=== PATIENT | female | born 1985 | race Caucasian/White ===

== ENCOUNTER 2016-08-19 22:02 | Emergency (ER) | payer OTHER ==
[2016-08-19 22:20] VITALS: BP 129/91; BMI 37.9
[2016-08-20 00:11] LABS: BILIRUBIN,URINE NEGATIVE (NEGATIVE); BLOOD/HEMOGLOBIN,URINE NEGATIVE (NEGATIVE); GLUCOSE, URINE NEGATIVE (NEGATIVE); KETONES,URINE NEGATIVE (NEGATIVE); LEUKOCYTE ESTERASE ,URINE NEGATIVE (NEGATIVE); NITRITES,URINE NEGATIVE (NEGATIVE); PROTEIN,URINE NEGATIVE (NEGATIVE); UROBILINOGEN,URINE NORMAL (NORMAL)
[2016-08-20 00:17] LABS: APPEARANCE,URINE CLEAR (CLEAR); BACTERIA,URINE TRACE /HPF (NEGATIVE); COLOR,URINE YELLOW (YELLOW); RBC,URINE NONE SEEN /HPF (NEGATIVE); SQUAMOUS EPITHELIAL CELL,UR FEW /HPF (NEGATIVE)
[2016-08-20 00:18] LABS: MUCUS,URINE MODERATE /HPF (NEGATIVE)
[2016-08-20] MEDS ORDERED: MORPHINE SULFATE INJ 4 MG IM ONE (01:38)
[2016-08-20] MEDS ORDERED: ZOFRAN INJ 4 MG VIAL IM ONE (01:38)
--- NOTE | 2016-08-20 01:41 | DR.GENAD ---
HPI - PCP Primary Care Physician: RITA - HPI Comment HPI Comment: WORSE TONIGHT. NOTED AFTER RECENT PAP SMEAR. NO VAGINAL BLEEDING OR DISCHARGE. HISTORY POLYCYSTIC OVARIAN DISEASE. NO FEVER OR DYSURIA. - Complaint/Symptoms Chief Complaint Doctors Comments: LOWER BACK AND LOWER ABDOMINAL PAIN WITH NAUSEA TIMES 4 DAYS. Chief Complaint:: PT STATES" I HAD A PAP SMEAR ON THURSDAY AND I'VE BEEN BLEEDING AND HURTING SINCE THEN" - Nurses notes reviewed Nurses Notes Review: Yes - Source History Provided: Patient - Mode of Arrival Mode of Arrival: Ambulatory - Timing Onset of Chief Complaint: 08/15/16 Came on: Suddenly, Gradually - Duration Duration: Constant Duration: Days - Severity Severity: Moderate PMH - PMH Past Medical History: Yes Past Medical History: GERD, PUD Past Medical History Comment: POLYCYSTIC OVARIAN Past Surgical History: Yes Surgical History: Abdominal Surgery, Appendectomy, , Cholecystectomy, Ortho Surgery - Family History History of Family Medical Conditions: No - Social History Alcohol Use: None Do you use any recreational Drugs:: No Lives With: Family Lives Where: Home - infectious screening In the last 2 months have you had wt loss of >10#?: NO Have you had fever, night sweats or hemotysis?: No Have you traveled outside the country in the last 6 months?: No Isolation: Standard ROS - Review of Systems Constitutional: No Symptoms Reported. negative: Chills, Fever, Weakness, Fatigue Eyes: No Symptoms Reported. negative: Eye Pain, Discharge ENTM: No Symptoms Reported. negative: Ear Pain, Nose Discharge, Nose Congestion , Throat Pain Respiratoy: No Symptoms Reported. negative: Productive Cough, Non-Productive Cough, Short of Breath, Wheezing, Hemoptysis Cardiovascular: No Symptoms Reported. negative: Chest Pain, Edema, Palpitations Gastrointestinal/Abdominal: Abdominal Pain, Nausea Genitourinary: Pain. negative: Dysuria, Frequency, Hematuria Neurological: No Symptoms Reported Musculoskeletal: Muscle Pain Integumentary: No Symptoms Reported Hematologic/Lymphatic: No Symptoms Reported Endocrine: No Symptoms Reported All Other Systems: Reviewed and Negative PE - Vital Signs Vitals: Temperature 98.1 F Pulse Rate 100 Respiratory Rate 18 Blood Pressure 129/91 O2 Sat by Pulse Oximetry 100 - General Limitations: No Limitations General Appearance: Alert - Head Head Exam: Normal Inspection - Eyes Eye exam: Normal Appearance - ENT ENT Exam: Normal External Ear Exam External Ear Exam: Normal External Inspection TM/Canal Exam: Bilateral Normal Nose Exam: Normal Nose Exam Mouth Exam: Normal Inspection Throat Exam: Normal Inspection - Neck Neck Exam: Trachea Midline. negative: Tenderness, Meningismus, Lymphadenopathy - Chest Chest Inspection: Symmetric Chest Wall Rise - Respiratory Respiratory Exam: Normal Lung Sounds Bilat Respiratory Exam: Bilateral Clear to Auscultation - Cardiovascular Cardiovascular Exam: Regular Rate, Normal Rhythm, Normal Heart Sounds - Abdominal Exam Abdominal Exam: Normal Bowel Sounds, Soft, Tenderness Abdominal Tenderness: RLQ, LLQ, Suprapubic - Extremities Extremities Exam: Normal Inspection - Back Back Exam: Normal Inspection - Neurologic Neurological Exam: Alert, Oriented X3 - Psychiatric Psychiatric Exam: Normal Affect, Normal Mood - Skin Skin Exam: Normal Color MDM - Differential Diagnosis Differential Diagnosis: ABDOMINAL PAIN, LOWER BACK PAIN Course - Treatment Treatment: SEE ORDERS - Education/Counseling Education/Counseling: Patient, Education Educated On: Diagnosis, Needs for Follow Up ROR - Labs Reviewed Laboratory Results Reviewed?: Yes Result Diagrams: 08/20/16 01:50 08/20/16 01:50 Laboratory: WBC 12.8 X10^3/uL (3.6-10.0) H 08/20/16 01:50 RBC 4.48 X10^6/uL (3.5-5.4) 08/20/16 01:50 Hgb 13.9 g/dL (12.0-16.0) 08/20/16 01:50 Hct 41.0 % (36.0-47.0) 08/20/16 01:50 MCV 91.5 fL (80.0-100.0) 08/20/16 01:50 MCH 31.0 pg (27.0-34.0) 08/20/16 01:50 MCHC 33.9 g/dL (33.0-35.0) 08/20/16 01:50 RDW 13.2 % (11.6-16.5) 08/20/16 01:50 Plt Count 258 X10^3/uL (150.0-450.0) 08/20/16 01:50 MPV 8.8 fL (7.4-11.0) 08/20/16 01:50 Neut % 65.3 % (42.0-75.0) 08/20/16 01:50 Lymph % 28.5 % (21.0-51.0) 08/20/16 01:50 [place] % 3.8 % (0.0-13.0) 08/20/16 01:50 Eos % 1.3 % (0.9-2.9) 08/20/16 01:50 Baso % 1.1 % (0.2-1.0) H 08/20/16 01:50 Neut # 8.4 x10^3/uL (2.2-4.8) H 08/20/16 01:50 Lymph # 3.7 X10^3/uL (1.3-2.9) H 08/20/16 01:50 [place] # 0.5 x10^3/uL (0.3-0.8) 08/20/16 01:50 Eos # 0.2 x10^3/uL (0.0-0.2) 08/20/16 01:50 Baso # 0.1 X10^3/uL (0.0-0.1) 08/20/16 01:50 Absolute Nucleated RBC 0.0 /100WBC 08/20/16 01:50 Sodium 140 mmol/L (136-145) 08/20/16 01:50 Corrected Sodium TNP 08/20/16 01:50 Potassium 3.3 mmol/L (3.5-5.1) L 08/20/16 01:50 Chloride 103 mmol/L (98-107) 08/20/16 01:50 Carbon Dioxide 31.2 mmol/L (21-32) 08/20/16 01:50 BUN 9 mg/dL (7-18) 08/20/16 01:50 Creatinine 0.82 mg/dL (0.55-1.02) 08/20/16 01:50 Est GFR (MDRD) Af Amer > 60 (>60) 08/20/16 01:50 Est GFR (MDRD) Non-Af > 60 (>60) 08/20/16 01:50 Glucose 92 mg/dL (65-99) 08/20/16 01:50 Calcium 9.0 mg/dL (8.5-10.1) 08/20/16 01:50 Corrected Calcium 9.6 mg/dL (8.5-10.1) 08/20/16 01:50 Total Bilirubin 0.30 mg/dL (0.2-1.0) 08/20/16 01:50 AST 11 Units/L (15-37) L 08/20/16 01:50 ALT 23 Units/L (12-78) 08/20/16 01:50 Alkaline Phosphatase 104 Units/L (46-116) 08/20/16 01:50 Total Protein 7.0 g/dL (6.4-8.2) 08/20/16 01:50 Albumin 3.3 g/dL (3.4-5.0) L 08/20/16 01:50 Globulin 3.7 g/dL (2.5-4.5) 08/20/16 01:50 Albumin/Globulin Ratio 0.9 Ratio (1.1-2.1) L 08/20/16 01:50 Amylase 46 Units/L (25-115) 08/20/16 01:50 Lipase 67 Units/L (73-393) L 08/20/16 01:50 Specimen Type Clean catch urine 08/19/16 23:57 Urine Color Yellow (YELLOW) 08/19/16 23:57 Urine Appearance Clear (CLEAR) 08/19/16 23:57 Urine pH 5.0 (5.0 - 8.0) 08/19/16 23:57 Ur Specific [place] 1.020 (1.000-1.030) 08/19/16 23:57 Urine Protein Negative (NEGATIVE) 08/19/16 23:57 Urine Glucose (UA) Negative (NEGATIVE) 08/19/16 23:57 Urine Ketones Negative (NEGATIVE) 08/19/16 23:57 Urine Occult Blood Negative (NEGATIVE) 08/19/16 23:57 Urine Nitrite Negative (NEGATIVE) 08/19/16 23:57 Urine Bilirubin Negative (NEGATIVE) 08/19/16 23:57 Urine Urobilinogen Normal (NORMAL) 08/19/16 23:57 Ur Leukocyte Esterase Negative (NEGATIVE) 08/19/16 23:57 Urine RBC None seen /HPF (NEGATIVE) 08/19/16 23:57 Urine WBC 0-2 /HPF (NEGATIVE) 08/19/16 23:57 Ur Squamous Epith Cells Few /HPF (NEGATIVE) 08/19/16 23:57 Urine Bacteria Trace /HPF (NEGATIVE) 08/19/16 23:57 Urine Mucus Moderate /HPF (NEGATIVE) 08/19/16 23:57 Ur Culture Indicated? No/not indicated 08/19/16 23:57 - XRAY XRAY Interpreted by: Radiologist XRAY Findings: REPORT DISCUSS WITH PATIENT. - Diagnosis Discharge Problem: Back pain Qualifiers: Back pain location: low back pain Chronicity: acute Back pain laterality: bilateral Sciatica presence: without sciatica Qualified Code(s): M54.5 - Low back pain Abdominal pain Qualifiers: Abdominal location: lower abdomen, unspecified Qualified Code(s): R10.30 - Lower abdominal pain, unspecified - Discharge Plan Disposition: 01 HOME, SELF-CARE Condition: Stable Prescriptions: Hydrocodone-Acet 5 mg/325 mg [[place] 5/325 mg Tab] 1 tab PO Q6H PRN #15 tab PRN Reason: Pain Ondansetron HCl [Zofran Tab 4 mg] 4 mg PO Q8H PRN #12 tab PRN Reason: Nausea/Vomiting - Follow ups/Referrals Follow ups/Referrals: NFD,None [Primary Care Provider] - 1 day Srinivasa Soto [STAFF PHYSICIAN] - 1 day - Instructions Instructions: Back Pain, Adult, [id number], Abdominal Pain, Adult, Easy-to- Read Additional Instructions: RETURN TO ED IF WORSE.
[2016-08-20] MEDS ORDERED: ZOFRAN INJ 4 MG VIAL ONE (01:47)
[2016-08-20] MEDS ORDERED: MORPHINE SULFATE INJ 4 MG ONE (01:48)
[2016-08-20 02:07] LABS: BASOPHILS # (AUTO) 0.1 X10^3/uL (0.0-0.1); BASOPHILS % (AUTO) 1.1 % (0.2-1.0); EOSINOPHILS # (AUTO) 0.2 x10^3/uL (0.0-0.2); EOSINOPHILS % (AUTO) 1.3 % (0.9-2.9); HEMOGLOBIN 13.9 g/dL (12.0-16.0); LYMPHOCYTES # (AUTO) 3.7 X10^3/uL (1.3-2.9); LYMPHOCYTES % (AUTO) 28.5 % (21.0-51.0); MEAN CORPUSCULAR HGB CONC 33.9 g/dL (33.0-35.0); MEAN CORPUSCULAR VOLUME 91.5 fL (80.0-100.0); MEAN PLATELET VOLUME 8.8 fL (7.4-11.0); MONOCYTES # (AUTO) 0.5 x10^3/uL (0.3-0.8); MONOCYTES % (AUTO) 3.8 % (0.0-13.0); NEUTROPHILS # (AUTO) 8.4 x10^3/uL (2.2-4.8); NEUTROPHILS % (AUTO) 65.3 % (42.0-75.0); PLATELET COUNT 258 X10^3/uL (150.0-450.0); RED BLOOD COUNT 4.48 X10^6/uL (3.5-5.4); RED CELL DISTRIBUTION WIDTH 13.2 % (11.6-16.5); WHITE BLOOD COUNT 12.8 X10^3/uL (3.6-10.0)
[2016-08-20 02:13] LABS: ALANINE AMINOTRANSFERASE 23 Units/L (12-78); ALBUMIN 3.3 g/dL (3.4-5.0); ALKALINE PHOSPHATASE 104 Units/L (46-116); AMYLASE 46 Units/L (25-115); ASPARTATE AMINO TRANSFERASE 11 Units/L (15-37); BLOOD UREA NITROGEN 9 mg/dL (7-18); CARBON DIOXIDE 31.2 mmol/L (21-32); CHLORIDE 103 mmol/L (98-107); COR CA(FOR HYPOALB) 9.6 mg/dL (8.5-10.1); CREATININE 0.82 mg/dL (0.55-1.02); GLUCOSE 92 mg/dL (65-99); LIPASE 67 Units/L (73-393); SODIUM 140 mmol/L (136-145); eGFR BLACK RACES > 60 (>60); eGFR NON BLACK RACES > 60 (>60)
--- NOTE | 2016-08-20 02:19 | CT ---
CT abdomen and pelvis without contrast Indication: Back pain, lower abdominal pain Comparison: None Technique: CT images of the abdomen and pelvis were obtained without contrast. Automatic exposure co ntrol was utilized. Findings: No aggressive osseous lesions. The lung bases are clear. The gallbladder is surgically absent. Within the limitations of a noncontrast study, the liver, sple en, stomach, duodenum, pancreas, adrenals, and kidneys appear normal. No ureteral stone identified. No focal bowel thickening or dilatation of the lower GI tract identified. The appendix is surgically absent. The uterus and ovaries are grossly normal. The urinary bladder and rectum are unremarkable. No free fluid or adenopathy identified. Impression: No acute process identified to explain patient's symptoms. Absent appendix. Reported By:
[2016-08-20] MEDS ORDERED: POTASSIUM CHLORIDE LIQ 20 MEQ UDC PO ONE (02:35)
[2016-08-20] MEDS ORDERED: POTASSIUM CHLORIDE LIQ 20 MEQ UDC ONE (02:44)
[2016-08-20] MEDS ORDERED: NORCO 5/325 MG TAB PO ONE (02:50)
[2016-08-20] MEDS ORDERED: NORCO 5/325 MG TAB ONE (02:51)
== END 2016-08-20 02:53 | disposition home or self-care (01) ==
LOC: ER 22:24
DX: M54.5 Low back pain (principal); R10.31 Right lower quadrant pain
CPT/HCPCS: 36415; 74176; 80053; 81001; 82150; 83690; 85025; 96372; 99283; J2270; J2405

== ENCOUNTER 2016-12-15 01:16 | Emergency (ER) | payer OTHER ==
[2016-12-15 01:25] VITALS: BP 118/71; BMI 34.3
[2016-12-15 01:57] LABS: BILIRUBIN,URINE NEGATIVE (NEGATIVE); BLOOD/HEMOGLOBIN,URINE NEGATIVE (NEGATIVE); GLUCOSE, URINE NEGATIVE (NEGATIVE); KETONES,URINE NEGATIVE (NEGATIVE); LEUKOCYTE ESTERASE ,URINE NEGATIVE (NEGATIVE); NITRITES,URINE NEGATIVE (NEGATIVE); PROTEIN,URINE NEGATIVE (NEGATIVE); UROBILINOGEN,URINE NORMAL (NORMAL)
--- NOTE | 2016-12-15 02:05 | DR.GENAD ---
HPI - PCP Primary Care Physician: IVIS - HPI Comment HPI Comment: HISTORY BELOW. - Complaint/Symptoms Chief Complaint Doctors Comments: SORE THROT, COUGH, CONGESTION, CHEST PAIN AND SOB TIMES ONE DAY. NECK FLAND ARE HURTING ALSO. WORSE TODAY. Chief Complaint:: PT STATES" MY CHEST HURTS MY THROAT HURTS I BEEN COUGHING ALOT FEELS LIKE I CAN'T GET A GOOD BREATH" - Nurses notes reviewed Nurses Notes Review: Yes - Source History Provided: Patient - Mode of Arrival Mode of Arrival: Ambulatory - Timing Onset of Chief Complaint: 12/14/16 - Duration Duration: Constant Duration: Days - Severity Severity: Moderate PMH - PMH Past Medical History: Yes Past Medical History: GERD, PUD Past Medical History Comment: POLYCYSTIC OVARIAN SYNDROME Past Surgical History: Yes Surgical History: Abdominal Surgery, Appendectomy, , Cholecystectomy, Ortho Surgery - Family History History of Family Medical Conditions: No - Social History Type of Tobacco Use: Cigarettes Does any household member use tobacco: No Alcohol Use: None Do you use any recreational Drugs:: No Lives With: Family Lives Where: Home - infectious screening In the last 2 months have you had wt loss of >10#?: NO Have you had fever, night sweats or hemotysis?: No Have you traveled outside the country in the last 6 months?: No Isolation: Standard ROS - Review of Systems Constitutional: No Symptoms Reported Eyes: No Symptoms Reported ENTM: No Symptoms Reported Respiratoy: No Symptoms Reported Cardiovascular: No Symptoms Reported Gastrointestinal/Abdominal: No Symptoms Reported Genitourinary: No Symptoms Reported Neurological: No Symptoms Reported Musculoskeletal: No Symptoms Reported Integumentary: No Symptoms Reported Hematologic/Lymphatic: No Symptoms Reported Endocrine: No Symptoms Reported All Other Systems: Reviewed and Negative PE - Vital Signs Vitals: Temperature 98.7 F Pulse Rate 90 Respiratory Rate 18 Blood Pressure 118/71 O2 Sat by Pulse Oximetry 100 - General Limitations: No Limitations General Appearance: Alert - Head Head Exam: Normal Inspection - Eyes Eye exam: Normal Appearance - ENT ENT Exam: Normal External Ear Exam External Ear Exam: Normal External Inspection TM/Canal Exam: Bilateral Normal Nose Exam: Normal Nose Exam Mouth Exam: Normal Inspection Throat Exam: Normal Inspection - Neck Neck Exam: Normal Inspection - Chest Chest Inspection: Symmetric Chest Wall Rise - Respiratory Respiratory Exam: Normal Lung Sounds Bilat Respiratory Exam: Bilateral Clear to Auscultation - Cardiovascular Cardiovascular Exam: Regular Rate, Normal Rhythm, Normal Heart Sounds - Abdominal Exam Abdominal Exam: Normal Bowel Sounds, Soft. negative: Tenderness - Extremities Extremities Exam: Normal Inspection - Back Back Exam: Normal Inspection - Neurologic Neurological Exam: Alert, Oriented X3 - Psychiatric Psychiatric Exam: Normal Affect, Normal Mood - Skin Skin Exam: Normal Color MDM - Differential Diagnosis Differential Diagnosis: CHEST PAIN, SORE THROAT, NECK GLAND PAIN AND SWELLING. Course - Treatment Treatment: SEE ORDERS - Education/Counseling Education/Counseling: Patient, Education Educated On: Treatment, Diagnosis, Needs for Follow Up ROR - Labs Reviewed Laboratory Results Reviewed?: Yes Result Diagrams: 12/15/16 02:00 Laboratory: WBC 7.9 X10^3/uL (3.6-10.0) 12/15/16 02:00 RBC 3.92 X10^6/uL (3.5-5.4) 12/15/16 02:00 Hgb 12.1 g/dL (12.0-16.0) 12/15/16 02:00 Hct 35.7 % (36.0-47.0) L 12/15/16 02:00 MCV 91.2 fL (80.0-100.0) 12/15/16 02:00 MCH 30.8 pg (27.0-34.0) 12/15/16 02:00 MCHC 33.8 g/dL (33.0-35.0) 12/15/16 02:00 RDW 13.8 % (11.6-16.5) 12/15/16 02:00 Plt Count 155 X10^3/uL (150.0-450.0) 12/15/16 02:00 MPV 9.6 fL (7.4-11.0) 12/15/16 02:00 Neut % 72.4 % (42.0-75.0) 12/15/16 02:00 Lymph % 19.2 % (21.0-51.0) L 12/15/16 02:00 [place] % 6.1 % (0.0-13.0) 12/15/16 02:00 Eos % 2.1 % (0.9-2.9) 12/15/16 02:00 Baso % 0.2 % (0.2-1.0) 12/15/16 02:00 Neut # 5.7 x10^3/uL (2.2-4.8) H 12/15/16 02:00 Lymph # 1.5 X10^3/uL (1.3-2.9) 12/15/16 02:00 [place] # 0.5 x10^3/uL (0.3-0.8) 12/15/16 02:00 Eos # 0.2 x10^3/uL (0.0-0.2) 12/15/16 02:00 Baso # 0.0 X10^3/uL (0.0-0.1) 12/15/16 02:00 Absolute Nucleated RBC 0.1 /100WBC 12/15/16 02:00 HCG, Qual Negative <10 mIU/mL 12/15/16 02:00 Specimen Type Clean catch urine 12/15/16 01:44 Urine Color Yellow (YELLOW) 12/15/16 01:44 Urine Appearance Clear (CLEAR) 12/15/16 01:44 Urine pH 7.0 (5.0 - 8.0) 12/15/16 01:44 Ur Specific [place] 1.010 (1.000-1.030) 12/15/16 01:44 Urine Protein Negative (NEGATIVE) 12/15/16 01:44 Urine Glucose (UA) Negative (NEGATIVE) 12/15/16 01:44 Urine Ketones Negative (NEGATIVE) 12/15/16 01:44 Urine Occult Blood Negative (NEGATIVE) 12/15/16 01:44 Urine Nitrite Negative (NEGATIVE) 12/15/16 01:44 Urine Bilirubin Negative (NEGATIVE) 12/15/16 01:44 Urine Urobilinogen Normal (NORMAL) 12/15/16 01:44 Ur Leukocyte Esterase Negative (NEGATIVE) 12/15/16 01:44 Urine RBC None seen /HPF (NEGATIVE) 12/15/16 01:44 Urine WBC None seen /HPF (NEGATIVE) 12/15/16 01:44 Ur Squamous Epith Cells Rare /HPF (NEGATIVE) 12/15/16 01:44 Urine Bacteria Negative /HPF (NEGATIVE) 12/15/16 01:44 Ur Culture Indicated? No/not indicated 12/15/16 01:44 Monoscreen Negative (NEGATIVE) 12/15/16 02:00 Streptococcus Screen Negative (NEGATIVE) 12/15/16 01:32 - XRAY XRAY Interpreted by: Radiologist XRAY Findings: REPORT DISCUSS WITH PATIENT. - Diagnosis Discharge Problem: Tonsillitis, Bronchitis, Cervical adenitis - Discharge Plan Disposition: 01 HOME, SELF-CARE Condition: Stable Prescriptions: Benzonatate [TESSALON PERLES *] 200 mg PO TID PRN #20 cap PRN Reason: Cough Cefdinir [Omnicef Cap 300 mg] 300 mg PO BID #20 cap Ketorolac Tromethamine [Toradol Tab] 10 mg PO Q8H PRN #12 tab PRN Reason: Pain - Follow ups/Referrals Follow ups/Referrals: NFD,None [Primary Care Provider] - 2 days - Instructions Instructions: Tonsillitis, [id number], Acute Bronchitis, [id number] Additional Instructions: RETURN TO ED IF WORSE.
[2016-12-15 02:07] LABS: APPEARANCE,URINE CLEAR (CLEAR); BACTERIA,URINE NEGATIVE /HPF (NEGATIVE); COLOR,URINE YELLOW (YELLOW); RBC,URINE NONE SEEN /HPF (NEGATIVE); SQUAMOUS EPITHELIAL CELL,UR RARE /HPF (NEGATIVE)
[2016-12-15 02:18] LABS: BASOPHILS % (AUTO) 0.2 % (0.2-1.0); EOSINOPHILS # (AUTO) 0.2 x10^3/uL (0.0-0.2); EOSINOPHILS % (AUTO) 2.1 % (0.9-2.9); HEMATOCRIT 35.7 % (36.0-47.0); HEMOGLOBIN 12.1 g/dL (12.0-16.0); LYMPHOCYTES # (AUTO) 1.5 X10^3/uL (1.3-2.9); LYMPHOCYTES % (AUTO) 19.2 % (21.0-51.0); MEAN CORPUSCULAR HEMOGLOBIN 30.8 pg (27.0-34.0); MEAN CORPUSCULAR HGB CONC 33.8 g/dL (33.0-35.0); MEAN CORPUSCULAR VOLUME 91.2 fL (80.0-100.0); MEAN PLATELET VOLUME 9.6 fL (7.4-11.0); MONOCYTES # (AUTO) 0.5 x10^3/uL (0.3-0.8); MONOCYTES % (AUTO) 6.1 % (0.0-13.0); NEUTROPHILS # (AUTO) 5.7 x10^3/uL (2.2-4.8); NEUTROPHILS % (AUTO) 72.4 % (42.0-75.0); PLATELET COUNT 155 X10^3/uL (150.0-450.0); RED BLOOD COUNT 3.92 X10^6/uL (3.5-5.4); RED CELL DISTRIBUTION WIDTH 13.8 % (11.6-16.5); WHITE BLOOD COUNT 7.9 X10^3/uL (3.6-10.0)
[2016-12-15 02:23] LABS: SERUM PREGNANCY TEST, QUAL NEGATIVE <10 mIU/mL
[2016-12-15 02:29] LABS: MONOTEST NEGATIVE (NEGATIVE)
[2016-12-15] MEDS ORDERED: ROCEPHIN VIAL 1 GM IM ONE (02:48)
[2016-12-15] MEDS ORDERED: TORADOL 60 MG VIAL IM ONE (02:48)
[2016-12-15] MEDS ORDERED: XYLOCAINE 1 % (PLAIN) ONE (02:57)
[2016-12-15] MEDS ORDERED: TORADOL 60 MG VIAL ONE (02:58)
[2016-12-15] MEDS ORDERED: ROCEPHIN VIAL 1 GM ONE (02:58)
== END 2016-12-15 03:52 | disposition home or self-care (01) ==
LOC: ER 01:16
DX: J40 Bronchitis, not specified as acute or chronic (principal); I88.9 Nonspecific lymphadenitis, unspecified; J03.90 Acute tonsillitis, unspecified; Z72.0 Tobacco use
CPT/HCPCS: 36415; 71010; 81001; 84703; 85025; 86308; 87070; 87880; 96372; 99283; J0696; J1885; J2001

== ENCOUNTER 2017-01-06 09:13 | Emergency (ER) | payer OTHER ==
--- NOTE | 2017-01-06 09:25 | DR.GENAD ---
HPI - HPI Comment HPI Comment: PATIENTS WAS NOTED NOT TO RESPONSE TO TWICE TODAY. SHE IS HAVING SEVERE HEADACHE WORSE THAN HER MIGRAINE HEADACHE. NO N/V D. NO FEVER. NOT TAKING XANAX PAST 3 DAYS. - Complaint/Symptoms Chief Complaint Doctors Comments: HEADACHE, SYNCOPAL EPISODE. - Nurses notes reviewed Nurses Notes Review: Yes - Source History Provided: Patient - Mode of Arrival Mode of Arrival: Ambulatory - Timing Came on: Suddenly - Duration Duration: Constant Duration: Days - Severity Severity: Moderate PMH - PMH Past Medical History: GERD, PUD Past Surgical History: Yes Surgical History: Abdominal Surgery, Appendectomy, , Cholecystectomy, Ortho Surgery - Social History Do you use any recreational Drugs:: No ROS - Review of Systems Constitutional: No Symptoms Reported Eyes: No Symptoms Reported ENTM: No Symptoms Reported Respiratoy: No Symptoms Reported Cardiovascular: No Symptoms Reported Gastrointestinal/Abdominal: No Symptoms Reported Genitourinary: No Symptoms Reported Neurological: Headache Musculoskeletal: No Symptoms Reported Integumentary: No Symptoms Reported Hematologic/Lymphatic: No Symptoms Reported Endocrine: No Symptoms Reported All Other Systems: Reviewed and Negative PE - Vital Signs Vitals: Temperature 98 F Pulse Rate 90 Respiratory Rate 20 Blood Pressure 120/77 O2 Sat by Pulse Oximetry 100 - General Limitations: No Limitations General Appearance: Alert - Head Head Exam: Normal Inspection - Eyes Eye exam: Normal Appearance - ENT ENT Exam: Normal External Ear Exam External Ear Exam: Normal External Inspection TM/Canal Exam: Bilateral Normal Nose Exam: Normal Nose Exam Mouth Exam: Normal Inspection Throat Exam: Normal Inspection - Neck Neck Exam: Normal Inspection - Chest Chest Inspection: Symmetric Chest Wall Rise - Respiratory Respiratory Exam: Normal Lung Sounds Bilat Respiratory Exam: Bilateral Clear to Auscultation - Cardiovascular Cardiovascular Exam: Regular Rate, Normal Rhythm, Normal Heart Sounds - Abdominal Exam Abdominal Exam: Normal Bowel Sounds, Soft. negative: Tenderness - Extremities Extremities Exam: Normal Inspection - Back Back Exam: Normal Inspection - Neurologic Neurological Exam: Alert, Oriented X3, CN II-XII Intact, Normal Gait, Reflexes Normal. negative: Motor Sensory Deficit - Psychiatric Psychiatric Exam: Normal Affect, Normal Mood - Skin Skin Exam: Normal Color [facility] - Additional Information Additional Information Obtained From: Family - Differential Diagnosis Differential Diagnosis: HEADACHE, SYNCOPAL EPISODE, CHEST PAIN Course - Treatment Treatment: SEE ORDERS. - Education/Counseling Education/Counseling: Patient, Education Educated On: Treatment, Diagnosis, Needs for Follow Up ROR - Labs Reviewed Laboratory Results Reviewed?: Yes Result Diagrams: 01/06/17 09:50 01/06/17 09:50 Laboratory: WBC 10.5 X10^3/uL (3.6-10.0) H 01/06/17 09:50 RBC 4.14 X10^6/uL (3.5-5.4) 01/06/17 09:50 Hgb 12.9 g/dL (12.0-16.0) 01/06/17 09:50 Hct 38.3 % (36.0-47.0) 01/06/17 09:50 MCV 92.6 fL (80.0-100.0) 01/06/17 09:50 MCH 31.1 pg (27.0-34.0) 01/06/17 09:50 MCHC 33.5 g/dL (33.0-35.0) 01/06/17 09:50 RDW 14.5 % (11.6-16.5) 01/06/17 09:50 Plt Count 231 X10^3/uL (150.0-450.0) 01/06/17 09:50 MPV 8.8 fL (7.4-11.0) 01/06/17 09:50 Neut % 67.7 % (42.0-75.0) 01/06/17 09:50 Lymph % 23.2 % (21.0-51.0) 01/06/17 09:50 [place] % 5.2 % (0.0-13.0) 01/06/17 09:50 Eos % 3.4 % (0.9-2.9) H 01/06/17 09:50 Baso % 0.5 % (0.2-1.0) 01/06/17 09:50 Neut # 7.1 x10^3/uL (2.2-4.8) H 01/06/17 09:50 Lymph # 2.4 X10^3/uL (1.3-2.9) 01/06/17 09:50 [place] # 0.5 x10^3/uL (0.3-0.8) 01/06/17 09:50 Eos # 0.4 x10^3/uL (0.0-0.2) H 01/06/17 09:50 Baso # 0.1 X10^3/uL (0.0-0.1) 01/06/17 09:50 Absolute Nucleated RBC 0.0 /100WBC 01/06/17 09:50 Sodium 141 mmol/L (136-145) 01/06/17 09:50 Corrected Sodium TNP 01/06/17 09:50 Potassium 4.0 mmol/L (3.5-5.1) 01/06/17 09:50 Chloride 106 mmol/L (98-107) 01/06/17 09:50 Carbon Dioxide 28.8 mmol/L (21-32) 01/06/17 09:50 BUN 11 mg/dL (7-18) 01/06/17 09:50 Creatinine 0.80 mg/dL (0.55-1.02) 01/06/17 09:50 Est GFR (MDRD) Af Amer > 60 (>60) 01/06/17 09:50 Est GFR (MDRD) Non-Af > 60 (>60) 01/06/17 09:50 Glucose 100 mg/dL (65-99) H 01/06/17 09:50 Calcium 8.8 mg/dL (8.5-10.1) 01/06/17 09:50 Corrected Calcium 9.5 mg/dL (8.5-10.1) 01/06/17 09:50 Total Bilirubin 0.20 mg/dL (0.2-1.0) 01/06/17 09:50 AST 18 Units/L (15-37) 01/06/17 09:50 ALT 31 Units/L (12-78) 01/06/17 09:50 Alkaline Phosphatase 105 Units/L (46-116) 01/06/17 09:50 Creatine Kinase 94 Units/L (26-192) 01/06/17 09:50 CK-MB (CK-2) < 1.0 ng/mL (0-4.0) 01/06/17 09:50 CK/CKMB % Calc 1.1 % (<4) 01/06/17 09:50 Troponin I < 0.02 ng/mL (0-1.5) 01/06/17 09:50 Total Protein 6.8 g/dL (6.4-8.2) 01/06/17 09:50 Albumin 3.1 g/dL (3.4-5.0) L 01/06/17 09:50 Globulin 3.7 g/dL (2.5-4.5) 01/06/17 09:50 Albumin/Globulin Ratio 0.8 Ratio (1.1-2.1) L 01/06/17 09:50 Specimen Type Clean catch urine 01/06/17:28 Urine Color Yellow (YELLOW) 01/06/17: Urine Appearance Slightly hazy (CLEAR) 01/06/17 09:28 Urine pH 6.0 (5.0 - 8.0) 01/06/17 09:28 Ur Specific [place] 1.025 (1.000-1.030) 01/06/17: Urine Protein 1+ (NEGATIVE) 01/06/17 09:28 Urine Glucose (UA) Negative (NEGATIVE) 01/06/17 09: Urine Ketones Negative (NEGATIVE) 01/06/17: Urine Occult Blood 4+ (NEGATIVE) 01/06/17: Urine Nitrite Negative (NEGATIVE) 01/06/17 09:28 Urine Bilirubin Negative (NEGATIVE) 01/06/17 09:28 Urine Urobilinogen Normal (NORMAL) 01/06/17:28 Ur Leukocyte Esterase Negative (NEGATIVE) 01/06/17:28 Urine RBC 3-5 /HPF (NEGATIVE) 01/06/17 09:28 Urine WBC 0-2 /HPF (NEGATIVE) 01/06/17 09:28 Ur Squamous Epith Cells Many /HPF (NEGATIVE) 01/06/17 09:28 Urine Bacteria Trace /HPF (NEGATIVE) 01/06/17 09:28 Urine Mucus Few /HPF (NEGATIVE) 01/06/17 09:28 Ur Culture Indicated? No/not indicated 01/06/17 09:28 Urine Opiates Screen Positive (NEG=<300) A 01/06/17:28 Urine Methadone Screen Negative (NEG=<300) 01/06/17: Ur Barbiturates Screen Negative (NEG=<200) 01/06/17:28 Ur Phencyclidine Scrn Negative (NEG=<25) 01/06/17 09:28 Ur Amphetamines Screen Positive (NEG=<1000) A 01/06/17: U Benzodiazepines Scrn Positive (NEG=<200) A 01/06/17 09:28 Urine Cocaine Screen Negative (NEG=<300) 01/06/17 09:28 U Marijuana (THC) Screen Positive (NEG=<50) A 01/06/17 09:28 - XRAY XRAY Findings: REPORT DISCUSS WITH PATIENT. - Diagnosis Discharge Problem: Syncope Qualifiers: Syncope type: unspecified Qualified Code(s): R55 - Syncope and collapse Headache Qualifiers: Headache type: unspecified Headache chronicity pattern: unspecified pattern Intractability: intractable Qualified Code(s): R51 - Headache - Discharge Plan Disposition: 01 HOME, SELF-CARE Condition: Stable - Follow ups/Referrals Follow ups/Referrals: Marti Bernabe [REGISTERED NURSE] - 1 day FRANDY BRYAN [STAFF PHYSICIAN] - 3 days FRAN BARRY [REFERRING] - 3 days - Instructions Instructions: Migraine Headache, [id number], Syncope, [id number] Additional Instructions: RETURN TO ED IF WORSE.
[2017-01-06 09:26] VITALS: BP 120/77; BMI 29.7
[2017-01-06] MEDS ORDERED: MORPHINE SULFATE INJ 4 MG IM ONE (09:40)
[2017-01-06] MEDS ORDERED: ZOFRAN INJ 4 MG VIAL IVP ONE (09:40)
[2017-01-06] MEDS ORDERED: ZOFRAN INJ 4 MG VIAL IM ONE (09:40)
[2017-01-06] MEDS ORDERED: ZOFRAN INJ 4 MG VIAL ONE (09:42)
[2017-01-06] MEDS ORDERED: MORPHINE SULFATE INJ 4 MG ONE (09:43)
[2017-01-06 10:00] LABS: BILIRUBIN,URINE NEGATIVE (NEGATIVE); BLOOD/HEMOGLOBIN,URINE 4+ (NEGATIVE); GLUCOSE, URINE NEGATIVE (NEGATIVE); KETONES,URINE NEGATIVE (NEGATIVE); LEUKOCYTE ESTERASE ,URINE NEGATIVE (NEGATIVE); NITRITES,URINE NEGATIVE (NEGATIVE); PROTEIN,URINE 1+ (NEGATIVE); UROBILINOGEN,URINE NORMAL (NORMAL)
[2017-01-06 10:02] LABS: BASOPHILS # (AUTO) 0.1 X10^3/uL (0.0-0.1); BASOPHILS % (AUTO) 0.5 % (0.2-1.0); EOSINOPHILS # (AUTO) 0.4 x10^3/uL (0.0-0.2); EOSINOPHILS % (AUTO) 3.4 % (0.9-2.9); HEMATOCRIT 38.3 % (36.0-47.0); HEMOGLOBIN 12.9 g/dL (12.0-16.0); LYMPHOCYTES # (AUTO) 2.4 X10^3/uL (1.3-2.9); LYMPHOCYTES % (AUTO) 23.2 % (21.0-51.0); MEAN CORPUSCULAR HEMOGLOBIN 31.1 pg (27.0-34.0); MEAN CORPUSCULAR HGB CONC 33.5 g/dL (33.0-35.0); MEAN CORPUSCULAR VOLUME 92.6 fL (80.0-100.0); MEAN PLATELET VOLUME 8.8 fL (7.4-11.0); MONOCYTES # (AUTO) 0.5 x10^3/uL (0.3-0.8); MONOCYTES % (AUTO) 5.2 % (0.0-13.0); NEUTROPHILS # (AUTO) 7.1 x10^3/uL (2.2-4.8); NEUTROPHILS % (AUTO) 67.7 % (42.0-75.0); PLATELET COUNT 231 X10^3/uL (150.0-450.0); RED BLOOD COUNT 4.14 X10^6/uL (3.5-5.4); RED CELL DISTRIBUTION WIDTH 14.5 % (11.6-16.5); WHITE BLOOD COUNT 10.5 X10^3/uL (3.6-10.0)
[2017-01-06 10:12] LABS: APPEARANCE,URINE SLIGHTLY HAZY (CLEAR); COLOR,URINE YELLOW (YELLOW)
[2017-01-06 10:13] LABS: BACTERIA,URINE TRACE /HPF (NEGATIVE); MUCUS,URINE FEW /HPF (NEGATIVE); SQUAMOUS EPITHELIAL CELL,UR MANY /HPF (NEGATIVE)
--- NOTE | 2017-01-06 10:28 | CT ---
HISTORY: Seizures Study: CT brain without contrast Comparison: None Technique: Multiple axial images of the brain were obtained from the skull base to the vertex without administra tion of IV contrast. Dose reduction techniques including Automated Exposure Control (AEC) and adjust ment of mA and kV were utilized. Findings: The brain parenchyma is within normal limits for patient's age. No evidence of acute hemorrhage, mid line shift, mass effect or abnormal extra-axial fluid collection. The ventricular system is symmetri c and nondilated. One new in the right temporal occipital region there is abnormal scalloping of the inner skull base with adjacent soft tissue density measuring 1.6 x 1 cm that may be related to a div erticulum of the right sigmoid sinus. No definite bony dehiscence is seen. The visualized paranasal s inuses are clear. IMPRESSION: 1.No acute intracranial abnormality. 2. 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 The findings are likel y congenital/chronic in nature but can be symptomatic, correlate clinically. Reported By:
[2017-01-06 10:46] LABS: ALANINE AMINOTRANSFERASE 31 Units/L (12-78); ALBUMIN 3.1 g/dL (3.4-5.0); ALKALINE PHOSPHATASE 105 Units/L (46-116); ASPARTATE AMINO TRANSFERASE 18 Units/L (15-37); BLOOD UREA NITROGEN 11 mg/dL (7-18); CALCIUM 8.8 mg/dL (8.5-10.1); CARBON DIOXIDE 28.8 mmol/L (21-32); CHLORIDE 106 mmol/L (98-107); COR CA(FOR HYPOALB) 9.5 mg/dL (8.5-10.1); SODIUM 141 mmol/L (136-145); TOTAL PROTEIN 6.8 g/dL (6.4-8.2); eGFR BLACK RACES > 60 (>60); eGFR NON BLACK RACES > 60 (>60)
--- NOTE | 2017-01-06 11:00 | RAD ---
HISTORY: History of seizure today with hypertension psychiatric disorders. Patient punched wall with left hand several times. Study: Three-view left hand Comparison: No priors Findings: No acute cortical disruption or dislocation is identified. There is dorsal soft tissue swelling. The carpal bones appear aligned without evidence for fracture. IMPRESSION: Dorsal soft tissue swelling of the hand without fracture. Reported By:
[2017-01-06 11:01] LABS: CKMB % 1.1 % (<4); CREATINE KINASE 94 Units/L (26-192); CREATINE KINASE MB < 1.0 ng/mL (0-4.0); TROPONIN I < 0.02 ng/mL (0-1.5)
[2017-01-06] MEDS ORDERED: TORADOL 60 MG VIAL IM ONE (11:11)
[2017-01-06] MEDS ORDERED: TORADOL 60 MG VIAL ONE (11:12)
== END 2017-01-06 11:38 | disposition home or self-care (01) ==
LOC: ER 09:33
DX: R51 Headache (principal); R55 Syncope and collapse
CPT/HCPCS: 36415; 70450; 73130; 80053; 80307; 81001; 82550; 82553; 84484; 85025; 93005; 93010; 96372; 99283; G0434; J1885; J2270; J2405